=== PATIENT | male | born 1975 | race Caucasian/White ===

== ENCOUNTER 2020-07-26 06:35 | Observation (INO) | payer BC ==
--- NOTE | 2020-07-21 12:39 | RAD REPORT ---
EXAM DESCRIPTION: Fan Pennington (2 Views)07/21/2020 12:15 pm CLINICAL HISTORY: Preop for hernia surgery COMPARISON: None FINDINGS: The lungs appear clear of acute infiltrate. The heart is normal size IMPRESSION: No acute abnormalities displayed
[2020-07-26] MEDS ORDERED: Ringers Lactate 1,000 ML IV ONE (07:06)
[2020-07-26] MEDS: CEFAZOLIN/SWI 1gm 1 GM/10 ML SYR ONE ×3 (07:24→07:50)
[2020-07-26] MEDS ORDERED: propofoL 200 MG/20 ML VIAL IV ONE ×2 (07:40→09:34)
[2020-07-26] MEDS ORDERED: MIDAZOLAM HCL 2 MG/2 ML INJ ONE (07:40)
[2020-07-26] MEDS ORDERED: LIDOCAINE 1% MPF 5 ML VIAL ONE (07:41)
[2020-07-26] MEDS ORDERED: ROCURONIUM 50 MG/5 ML VIAL IV ONE (07:41)
[2020-07-26] MEDS ORDERED: FENTANYL CITR 100 MCG/2 ML ONE (07:41)
[2020-07-26] MEDS ORDERED: KETOROLAC 30 MG/ML INJ ONE (08:18)
[2020-07-26] MEDS ORDERED: ONDANSETRON 4 MG/2 ML VIAL ONE (08:26)
[2020-07-26] MEDS ORDERED: GLYCOPYRROLATE 0.2 MG/ML SYR ONE ×2 (08:26→08:31)
[2020-07-26] MEDS ORDERED: NEOSTIGMINE 1 MG/ML -5 ML ONE (08:31)
[2020-07-26] MEDS ORDERED: EPHEDRINE SULF 50 MG/ML VIAL ONE (08:32)
[2020-07-26] MEDS ORDERED: NS 0.9% VIAL 10 ML ONE (08:32)
[2020-07-26] MEDS ORDERED: MORPHINE 10 MG/ML VIAL ONE (08:50)
[2020-07-26] MEDS ORDERED: SODIUM CHLORIDE 0.9% 10ML INJ IV PRN (09:48)
[2020-07-26] MEDS ORDERED: ONDANSETRON 4 MG/2 ML VIAL IV PRN (09:48)
[2020-07-26] MEDS ORDERED: HYDROMORPHONE HCL 1 MG/ML INJ IV PRN (09:48)
[2020-07-26] MEDS ORDERED: HYDROCODONE/APAP 5/325 MG TAB PO PRN (09:48)
[2020-07-26 09:56] VITALS: O2SAT 96
--- NOTE | 2020-07-26 09:56 | P.BOP ---
Preoperative diagnosis: multiple incarcerated incisional hernias Postoperative diagnosis: same Primary procedure: Laparoscopic repair multiple incarcerated incisional hernias with mesh Secondary procedure: Extensive lysis of adhesions Site Engineer: JAGJIT DAVID (FURNACE FITTER) Estimated blood loss: <25cc Specimen: sac Findings: extensive intrabdominal adhesions Anesthesia: General Complications: None Implants: ventralex ST with echo Transferred to: Recovery Room Condition: Good
[2020-07-26] MEDS ORDERED: NA CHLORIDE 0.9% 1,000 ML IV SCH (10:00)
--- OUTSIDE RECORDS SUMMARY | 2020-07-26 10:04 | XMS REPORT | Continuity of Care Document ---
:1975 Author Organization [facility] t Address [address] [place] [address] Care Team Providers Name Role Phone Unavailable Unavailable Unavailable Problems This patient has no known problems. Allergies, Adverse Reactions, Alerts Allergy Allergy Status Severity Reaction(s) Onset Inactive Treating Comm ents Source Name Type Date Date Clinician Adhesive Adverse Active Info Not [facility] Medications Ordered Filled Start Stop Current Ordering Indication Dosage Frequency Signature Comments Components Source Medication Medication Date Date Medication? Clinician (SIG) Name Name Atorvastati Atorvastati Yes Micheal not [facility] Calcium n Calcium Anna defined [facility] Amlodipine Amlodipine Yes Micheal not [facility] Besylate Besylate Anna defined [facility] Testosteron Testosteron Yes Micheal not [facility] Anna defined [facility] Carvedilol Carvedilol Yes Micheal not [facility] Phosphate Phosphate Anna defined Debbie kes - [facility] Meloxicam Meloxicam Yes Micheal TK [address] [facility] QD [facility] Sulfamethox Sulfamethox Yes Micheal TK [address] [facility] azole-Trime azole-Trime Anna BID FOR 7 [facility] Irbesartan Irbesartan Yes Micheal TAKE [address] [facility] TABLET BY [facility] Hydrochloro Hydrochloro Yes Micheal TAKE [address] [facility] thiazide thiazide Anna TABLET BY Debbie k[facility] - [facility] Procedures This patient has no known procedures. Encounters Start End Encounter Admission Attending Care Care Encounter Source Date/Time Date/Time Type Type Clinicians Facility Department ID 2020-04-20 2020-04-20 Out[facility] [id number] 2020-04-17 2020-04-17 [facility] [id number] [facility] 2020-04-07 2020-04-07 [facility] [id number] [facility] 2020-03-22 2020-03-22 [facility] [id number] [facility] 2020-03-07 2020-03-07 [facility] [id number] [facility] 2020-02-07 2020-02-07 [facility] [id number] [facility] 2019-12-08 2019-12-08 [facility] [id number] [facility] 2019-11-16 2019-11-16 [facility] [id number] [facility] 2019-11-10 2019-11-10 [facility] [id number] [facility] 2019-11-04 2019-11-04 [facility] [id number] [facility] 2019-10-11 2019-10-11 [facility] [id number] [facility] 11[facility]00 11:47[facility]00 [facility] 2019-09-16 2019[facility]09-16 [facility] [id number] [facility] 08[facility]30[facility]00 08:30:00 [facility] 2019-06-15 2019-06-15 [facility] [id number] [facility] 14:[facility]00 14:00:00 [facility] 2019-06-08 2019[facility]06-08 [facility] [id number] [facility] 14[facility]59:00 14:59:00 [facility] 2019-06-07 2019-06-07 [facility] [id number] [facility] 10:15:00 10:15:00 [facility] 2019-03-22 2019-03-22 [facility] [id number] [facility] 09:15[facility]00 09:15:00 [facility] Results This patient has no known results.
[2020-07-26 10:53] VITALS: BMI 34.1
[2020-07-26] MEDS ORDERED: CEFOXITIN/SWI 1gm 1 GM/10 ML SYR IV SCH (12:00)
[2020-07-26] MEDS ORDERED: CEFOXITIN 1 GM in NA CHLORIDE 0.9% 100 ML IVPB SCH (12:00)
[2020-07-26] MEDS: CEFOXITIN/SWI 1gm 1 GM/10 ML SYR IV SCH ×2 (12:41→17:36)
[2020-07-26 16:27] VITALS: BP 133/79; TEMP 98.4
[2020-07-27] MEDS ORDERED: PANTOPRAZOLE 40 MG INJ IVP SCH (09:00)
== END 2020-07-26 21:15 | disposition home or self-care (01) ==
LOC: OR 06:35 → 2ND 10:01
PROVIDERS: ADMIT Surgery; ATTEND Surgery
PROC: 0WUF4JZ Supplement Abdominal Wall with Synthetic Substitute, Percutaneous Endoscopic Approach (ICD-10-PCS; principal; 2020-07-26 07:30)
DX: K43.0 Incisional hernia with obstruction, without gangrene (principal); I10 Essential (primary) hypertension; E78.00 Pure hypercholesterolemia, unspecified; R06.83 Snoring; Z20.822 Contact with and (suspected) exposure to COVID-19
CPT/HCPCS: 71046; 88302; 93005; 94010; G0378; G0379; J0690; J2250; J2405; J2704; J2710; J3010; J7030; J7120; U0002